=== PATIENT | female | born 1995 | race African-American/Black ===

== ENCOUNTER 2020-02-13 00:29 | Emergency (ER) | payer OTHER, SELFPAY ==
[2020-02-13 00:32] VITALS: BP 135/89; PULSE 88; RESP 18; TEMP 36.2; O2SAT 100
--- NOTE | 2020-02-13 00:49 | ED.URI ---
HPI - URI/Sore Throat General Chief Complaint: Unspecified Stated Complaint: ST Time Seen by Provider: 02/13/20 01:44 Source: patient and RN notes reviewed Mode of arrival: ambulatory Limitations: no limitations History of Present Illness HPI Narrative: A 24 y/o female presents to the ED with a intermittent, worsening, sore throat for the past 5 days. She reports associated nasal congestion and sinus drainage. She states her symptoms are more severe in the morning and that she has been taking Theraflu for them but denies it helping to alleviate her sore throat. She notes that yesterday she felt like she developed a lump in the rt side of her neck, so she decided to come to the ED to be tested for strep throat. She denies any cough, fevers, chills, body aches, N/V/D, or any other medical issues at this time. MD elicited complaint: sore throat Onset (ago): day(s) (5) Consistency: intermittent Relieving factors: nothing and NSAID Associated symptoms: nasal congestion and other (sinus drainage and lump in the rt side of her neck) Treatments prior to arrival: cold medicine (Theraflu) Related Data Allergies Allergy/AdvReac Type Severity Reaction Status Date / Time No Known Allergies Allergy Unverified 07/01/16 12:55 Review of Systems Review of Systems: All systems reviewed & are unremarkable except as noted in HPI and below Constitutional: Constitutional: Denies body ache(s), Denies chills, Denies fatigue and Denies fever(s) Eyes: Eyes: Denies blurry vision ENT: Reports nasal congestion, Denies sinus pressure, Reports sore throat and Reports other (sinus drainage and lump in the rt side of her neck) Cardiovascular: Cardiovascular: Denies chest pain, Denies rapid heart rate, Denies leg edema and Denies dyspnea Respiratory: Respiratory: Denies cough, Denies hemoptysis and Denies dyspnea Gastrointestinal: Gastrointestinal: Denies abdominal pain, Denies melena, Denies diarrhea, Denies nausea and Denies vomiting Musculoskeletal: Musculoskeletal: Denies numbness Neurologic: Denies Abnormal speech present, Denies focal weakness and Denies numbness Endocrine: Endocrine: Denies fatigue PMF Past Medical History Medical History (Updated 02/13/20 @ 03:42 by Jennifer Mckeon MD) Medical history unknown Surgical History Surgical History (Updated 02/13/20 @ 02:03 by Cornelio Nelson) History of dilation and curettage Hx of tubal ligation Social History Social History (Updated 02/13/20 @ 00:51 by Cornelio Nelson) Smoking status: Never smoker Gender identity (if verbalized by the patient): Female Exam Narrative: Exam Narrative: GENERAL: Well-appearing, well-nourished, and in no acute distress. HEAD: Normocephalic, atraumatic EYES: PERRLA and EOMI, conjunctiva clear without discharge EARS: TM's clear bilaterally without erythema or dullness RESPIRATORY: No respiratory distress, Airway patent, Respirations non-labored, Clear to auscultation without rales, rhonchi or wheeze HEART: Regular rate and rhythm. No murmur heard. Normal peripheral pulses. ABDOMEN: Soft, nontender, nondistended, normal active bowel sounds. No masses. No rebound or guarding, No organomegaly. EXTREMITIES: No edema, normal strength with full range of motion. SKIN: Warm, dry, normal color without rash NEURO: Alert and oriented x3. CN 2-12 grossly intact. No focal deficits. PSYCH: Normal mood and affect. HENMT: General nose exam: Abnormal mucous membranes and turbinates present boggy Face and sinus: sinuses nontender and face symmetric Mouth: Yes tongue normal and Yes other (cobblestone to posterior pharynx, no tonsillar enlargement or exudate) Teeth and gingiva: dentition normal and gingiva normal Course Vital Signs Vital signs: Vital Signs Temperature 97.2 F L 02/13/20 00:32 Pulse Rate 88 02/13/20 00:32 Respiratory Rate 18 02/13/20 00:32 Blood Pressure 135/89 02/13/20 00:32 Pulse Oximetry 100 02/13/20 00:32 Temperature
[2020-02-13 03:45] VITALS: BP 142/77; PULSE 78; RESP 18; O2SAT 98
== END 2020-02-13 03:46 | disposition home or self-care (01) ==
PROVIDERS: Emergency Provider General Practice
DX: J06.9 Acute upper respiratory infection, unspecified (principal)
CPT/HCPCS: 87081; 87804; 87880; 99283

== ENCOUNTER 2022-06-26 07:20 | Emergency (ER) | payer OTHER, SELFPAY ==
[2022-06-26] VITALS (17 sets, daily range): BP systolic 113–121; BP diastolic 73–83; PULSE 57–79; RESP 14–23; O2SAT 94–100
--- NOTE | ~2022-06-26 | CT_ITS ---
EXAMINATION: CT abdomen pelvis w con DATE: 06/26/2022 09:09 INDICATION: Abdominal pain TECHNIQUE: Computed tomography (CT) of the abdomen and pelvis was performed with 100 mL Omnipaque-300 intravenous contrast. Automated exposure control and iterative reconstruction technique were employe d. The dose-length product was 823.40 mGy-cm. COMPARISON: None FINDINGS: Lung bases are clear. Heart size is normal. No pericardial or pleural effusion. Focal hepatic steatos is at the ligamentum teres. Gallbladder, spleen, pancreas, bilateral adrenal glands and kidneys are n ormal. Small to moderate-sized widemouthed fat-containing umbilical hernia. Bowels including the appe ndix are normal with no wall thickening or obstruction. Bladder is normal. Anteverted uterus and bila teral adnexa are unremarkable. No free intraperitoneal gas or fluid. No pathologically enlarged abdom inal or pelvic lymphadenopathy. Bones are unremarkable. IMPRESSION: 1. No acute intra-abdominal/pelvic process. 2. Small to moderate-sized widemouthed fat-containing umbilical hernia. Reviewed, dictated and finalized at location A.
--- NOTE | ~2022-06-26 | US_ITS ---
EXAMINATION: US pelvic complete w TV DATE: 06/26/2022 10:08 INDICATION: Pelvic pain. TECHNIQUE: Multiple transabdominal and transvaginal sonographic images of the pelvis were obtained. COMPARISON: CT abdomen and pelvis 06/26/2022 FINDINGS: TRANSABDOMINAL ULTRASOUND: The uterus measures 7.6 x 4.3 x 3.1 cm. There is no free fluid in the pelvis. TRANSVAGINAL ULTRASOUND: The endometrial complex measures 5 mm in thickness. The right ovary measures 3.6 x 2.3 x 2.4 cm. The left ovary measures 2.5 x 1.3 x 1.4 cm. There is normal vascular flow in the ovaries. IMPRESSION: 1. Normal pelvis. Reviewed, dictated and finalized at location A. IMPRESSION: 1. Normal pelvis.
[2022-06-26 08:02] LABS: Basophils Absolute Auto 0.1 K/mm3 (0.0-0.1); Basophils Percent Auto 1.1 % (0.2-1.2); Eosinophils Absolute Auto 0.1 K/mm3 (0-0.3); Eosinophils Percent Auto 1.1 % (0-4.4); Hematocrit 36.9 % (37.0-47.0); Hemoglobin 12.1 g/dL (12.0-15.0); Immature Granulocyte Absolute 0.01 K/mm3 (0.00-0.031); Immature Granulocyte Percent A 0.2 % (0-0.5); Lymphocytes Absolute Auto 2.53 K/mm3 (0.9-3.2); Lymphocytes Percent Auto 44.4 % (18.3-44.2); Mean Corpuscular HGB Conc 32.8 g/dl (32-36); Mean Corpuscular Hemoglobin 31.3 pg (26-34); Mean Corpuscular Volume 95.3 fl (80-100); Mean Platelet Volume 11.2 fl (7.4-10.4); Monocytes Absolute Auto 0.4 K/mm3 (0.1-0.6); Monocytes Percent Auto 6.3 % (2.6-8.5); Neutrophils Absolute Auto 2.7 K/mm3 (1.3-6.7); Neutrophils Percent Auto 46.9 % (45.5-73.1); Platelet Count Result 288 k/mm3 (150-375); Red Blood Count 3.87 M/mm3 (4.2-5.4); Red Cell Distribution Width 12.5 % (11.5-14.5); White Blood Count 5.7 K/mm3 (4.5-10.0)
[2022-06-26 08:12] LABS: Alanine Aminotransferase 20 U/L (6-35); Albumin Level 4.6 g/dL (3.5-5.1); Alkaline Phosphatase 59 U/L (38-126); Anion Gap 13 mmol/L (8-16); Aspartate Amino Transferase 23 U/L (14-36); Bilirubin,Total 0.6 mg/dL (0.2-1.3); Blood Urea Nitrogen 13 mg/dL (7-17); Calcium 8.9 mg/dL (8.4-10.2); Carbon Dioxide 25 mmol/L (22-30); Chloride 102 mmol/L (98-107); Estimated CRCL calculation 110 ml/min; Estimated Glomerular Filt Rate > 60; Glucose 103 mg/dL (65-110); Lipase 123 U/L (23-300); Potassium 4.4 mmol/L (3.4-5.0); Sodium 140 mmol/L (137-145)
--- NOTE | 2022-06-26 08:18 | PC.NURSE ---
Dr. Christian at bedside to assess pt.
--- NOTE | 2022-06-26 08:20 | ED.ABDPAIN ---
HPI - Abdominal Pain General Chief Complaint: Abdominal Pain Stated Complaint: abd pain Time Seen by Provider: 06/26/22 07:28 Source: RN notes reviewed History of Present Illness HPI narrative: Patient presents emergency department from home for abdominal pain. Patient states pain began yesterday. The pain is diffuse throughout the abdomen described as sharp and stabbing is associate with nausea. She denies any vomiting or diarrhea. Patient states she did start her menstrual period yesterday states she not taking medication for the symptoms at home. She denies any fevers or chills chest pain shortness of breath any other symptoms. Related Data Allergies Allergy/AdvReac Type Severity Reaction Status Date / Time Penicillins AdvReac Vomiting Verified 06/26/22 08:20 Review of Systems Review of Systems: Gen.: Denies fevers or chills ENT: Denies congestion Respiratory: Denies shortness of breath or cough CV: Denies chest pain or palpitations GI: See HPI reports starting menstrual cycle yesterday Musculoskeletal: Denies back pain or muscle pain Neuro: Denies numbness, tingling, weakness or focal weakness Skin: Denies rash Except as documented, all other systems reviewed and negative [facility] Past Medical History Medical History Medical history unknown Surgical History Surgical History (Updated 02/13/20 @ 02:03 by Cornelio Nelson) History of dilation and curettage Hx of tubal ligation Social History Social History Smoking status: Never smoker Gender identity (if verbalized by the patient): Female Exam Narrative: APPEARANCE: No acute distress, nontoxic, resting in bed HEENT: Normocephalic, atraumatic, OMM RESPIRATORY: No respiratory distress, clear to auscultation bilaterally with no rhonchi wheezing or rales CARDIOVASCULAR: RRR s murmur ABDOMINAL: Soft nondistended diffusely tender palpation no rebound or guarding MUSCULOSKELETAl: Moves all extremities. No clubbing, cyanosis or edema. NEURO: Awake and alert. Following commands, speech normal, no focal deficits SKIN:: Warm, dry. Normal Color PSYCHIATRIC: Normal affect/mood Course Course Emergency Course: Patient states that they are feeling much better at this time. States abdominal pain has resolved. Repeat abdominal exam shows the patient's abdomen to be soft and nontender. Discussed with patient results of workup and diagnosis. Discussed need for follow-up with primary care physician, reasons to return to the emergency department in proper use of medication. Patient understands and agrees to current treatment plan Vital Signs Vital signs: Vital Signs Pulse Rate 78 06/26/22 07:31 Respiratory Rate 14 06/26/22 07:31 Pulse Oximetry 100 06/26/22 07:31 Pulse Rate 57 L 06/26/22 10:35 Respiratory Rate 19 06/26/22 10:15 Blood Pressure 113/73 06/26/22 08:01 Pulse Oximetry 100 06/26/22 10:35 Oxygen Delivery Room Air 06/26/22 07:35 MDM - Abdominal Pain MDM Narrative Medical decision making narrative: Patient's abdomen is soft without significant pain or signs of surgical abdomen on serial exams. Lab and x-ray evaluations are reviewed and patient is felt to be a reasonable candidate for outpatient management. Patient was instructed as to limitations of x-ray and laboratory evaluation and encouraged to return to ED or primary physician for repeat exam in 12 hours if continued or worsening pain Lab Data Result diagrams: 06/26/22 07:49 06/26/22 07:49 Labs: Lab Results 06/26/22 06/26/22 06/26/22 Range/Units 07:49 07:49 08:18 WBC 5.7 (4.5-10.0) K/mm3 RBC 3.87 L (4.2-5.4) M/mm3 Hgb 12.1 (12.0-15.0) g/dL Hct 36.9 L (37.0-47.0) % MCV 95.3 (80-100) fl MCH 31.3 (26-34) pg MCHC 32.8 (32-36) g/dl RDW 12.5 (11.5-14.5) % Plt Count 288 (150-375) k/mm3 MPV
[2022-06-26 08:33] LABS: Appearance Urine Cloudy (Clear); Color Urine Red (Yellow)
[2022-06-26 08:35] LABS: Add Urine Microscopic? YES
[2022-06-26] MEDS: SODIUM CHLORIDE 0.9% IV 1,000 ML 999 ML IV CONT (08:46)
[2022-06-26] MEDS: KETOROLAC 30 MG/ML VIAL (*BKC) IV PUSH (08:47)
[2022-06-26] MEDS: ONDANSETRON INJ 4 MG/2 ML VIAL IV PUSH (08:47)
[2022-06-26 09:09] LABS: Bacteria Urine Trace /hpf; Mucus Urine Heavy /lpf; RBC Urine >75 /hpf (0-2); Squamous Epithelial Cell Urine Many /hpf (Few); WBC Urine >75 /hpf
== END 2022-06-26 11:11 | disposition home or self-care (01) ==
PROVIDERS: Emergency Provider Emergency Medicine
DX: R10.84 Generalized abdominal pain (principal); K42.9 Umbilical hernia without obstruction or gangrene
CPT/HCPCS: 36415; 74177; 76830; 76856; 80053; 81001; 81025; 83690; 85025; 87086; 96361; 96374; 96375; 99284; J1885; J2405; J7030; Q9967